=== PATIENT | female | born 2000 | race Two or more races ===

== ENCOUNTER 2022-09-06 00:29 | Emergency (ER) | payer OTHER ==
[~2022-09-06] VITALS: Ht 157.5 cm; Wt 43.5 kg
[2022-09-06] MEDS ORDERED: MACRODANTIN100 M1 PO (11:48)
== END 2022-09-06 12:10 | disposition home or self-care (01) ==
LOC: ER 00:29
DX: O23.41 Unspecified infection of urinary tract in pregnancy, first trimester (principal); Z3A.12 12 weeks gestation of pregnancy; E86.0 Dehydration; N39.0 Urinary tract infection, site not specified; Z91.013 Allergy to seafood

== ENCOUNTER 2022-11-07 18:29 | Outpatient (CLI) | payer OTHER ==
[~2022-11-07 18:29] MED LIST: MACRODANTIN100 M1 PO
== END 2022-11-08 10:12 | disposition home or self-care (01) ==
LOC: OBS/DEL 18:29
PROVIDERS: ATTEND Specialist
DX: O09.612 Supervision of young primigravida, second trimester (principal); R10.2 Pelvic and perineal pain; Z3A.21 21 weeks gestation of pregnancy; Z91.013 Allergy to seafood

== ENCOUNTER 2023-02-23 14:50 | Inpatient (IN) | payer OTHER ==
[~2023-02-23] VITALS: Ht 160 cm; Wt 57.2 kg
[2023-03-10] MEDS ORDERED: PRENATAL TABLE1 EAC4 PO (03:01)
== END 2023-03-12 14:21 | disposition home or self-care (01) | DRG 807 ==
LOC: OB/GYN 03-10 02:46 → LDR 03-10 02:46 → OB/GYN 03-10 12:27
PROVIDERS: Student in an Organized Health Care Education/Training Program; ADMIT Specialist; ATTEND Specialist
PROC: 10E0XZZ Delivery of Products of Conception, External Approach (ICD-10-PCS; principal; 2023-03-10)
PROC: 0W8NXZZ Division of Female Perineum, External Approach (ICD-10-PCS; 2023-03-10)
PROC: 4A1HXCZ Monitoring of Products of Conception, Cardiac Rate, External Approach (ICD-10-PCS; 2023-03-10)
DX: O80 Encounter for full-term uncomplicated delivery (principal); Z37.0 Single live birth; Z3A.39 39 weeks gestation of pregnancy; Z20.822 Contact with and (suspected) exposure to COVID-19